=== PATIENT | female | born 1985 | race Caucasian/White ===

== ENCOUNTER 2021-12-26 06:58 | Day surgery (SDC) | payer OTHER ==
[2021-12-22 11:28] VITALS: BMI 37.8
[~2021-12-26 06:58] MED LIST: LACTATED RINGERS 1,000 ML IV SCH; LIDOCAINE 1% (10MG/ML) FOR IV START INTRADERMA PRN
[2021-12-26 07:12] VITALS: TEMP 97.5
[2021-12-26] MEDS ORDERED: LACTATED RINGERS 1,000 ML IV ONE (07:22)
[2021-12-26] MEDS ORDERED: LIDOCAINE 2% INJ 20 MG/ML (2 ML VIAL) ONE (07:32)
[2021-12-26] MEDS ORDERED: PROPOFOL 10 MG/ML 20 ML VIAL IV ONE (07:32)
--- NOTE | 2021-12-26 07:32 | P.GSHP ---
History of Present Illness H&P Date: 12/26/21 CHIEF COMPLAINT: GERD HISTORY OF PRESENT ILLNESS: The patient is a 36-year-old female who presents reports gastroesophageal reflux disease. Upper endoscopy was offered for further evaluation and management. PAST MEDICAL HISTORY: Please see list. PAST SURGICAL HISTORY: Please see list. MEDICATIONS: Please see list. ALLERGIES: Please see list. SOCIAL HISTORY: No illicit drug use FAMILY HISTORY: No reports of Crohn disease or ulcerative colitis. REVIEW OF ORGAN SYSTEMS: CONSTITUTIONAL: No reports of fevers or chills. GI: Denies any blood in stools or constipation. PHYSICAL EXAM: VITAL SIGNS: Stable GENERAL: Well-developed and pleasant in no acute distress. HEENT: No scleral icterus. Extraocular movements grossly intact. Moist buccal mucosa. NECK: Supple without lymphadenopathy. CHEST: Unlabored respirations. Equal bilateral excursions. CARDIOVASCULAR: Regular rate and rhythm. Distal 2+ pulses. ABDOMEN: Soft, nondistended. MUSCULOSKELETAL: No clubbing, cyanosis, or edema. ASSESSMENT: 1. Gastroesophageal reflux disease PLAN: 1. Recommend proceeding with an upper endoscopy Past Medical History Past Medical History: Deep Vein Thrombosis (DVT), Sleep Apnea/CPAP/BIPAP Additional Past Medical History / Comment(s): scoliosis, narrow disc in back, uterine fibroids, adenomyosis, USES C PAP MACHINE. DVT BEHIND LEFT KNEE DURING History of Any Multi-Drug Resistant Organisms: None Reported Past Surgical History: Orthopedic Surgery, Tubal Ligation Additional Past Surgical History / Comment(s): left ankle surgery x 2, pyloric stenosis surgery as an infant, Past Anesthesia/Blood Transfusion Reactions: No Reported Reaction Smoking Status: Former smoker - Past Family History Mother Family Medical History: No Reported History Medications and Allergies Home Medications Medication Instructions Recorded Confirmed Type Methylphenidate HCl 36 mg PO DAILY 11/16/21 12/22/21 History [Methylphenidate HCl ER] Ergocalciferol [Vitamin D2 (1250 50,000 unit PO GUTIERREZ 11/24/21 12/22/21 History Mcg = 37686 Iu)] Allergies Allergy/AdvReac Type Severity Reaction Status Date / Time No Known Allergies Allergy Verified 12/22/21 11:19 Surgical - Exam Vital Signs Temp Pulse Resp BP Pulse Ox 97.5 F L 67 18 130/92 98 12/26/21 07:11 12/26/21 07:11 12/26/21 07:11 12/26/21 07:11 12/26/21 07:11
[2021-12-26 08:03] VITALS: BP 122/85; PULSE 71; RESP 16
--- NOTE | 2021-12-26 08:03 | P.PCN ---
Date of Procedure: 12/26/21 Description of Procedure: PREOPERATIVE DIAGNOSIS: Gastroesophageal reflux disease. Morbid obesity. POSTOPERATIVE DIAGNOSIS: Gastroesophageal reflux disease. Morbid obesity. Gastritis. OPERATION: Esophagogastroduodenoscopy with biopsies along antrum, duodenum SURGEON: Nati Chu MD ANESTHESIA: MAC. INDICATIONS: The patient is a 36-year-old female who presents with reflux disease. Benefits and risks of the procedure were described. Informed consent was obtained. DESCRIPTION: The patient was brought into the endoscopy suite and laid in the left lateral decubitus position. An Olympus gastroscope was passed along the posterior oropharynx down to the distal esophagus where the squamocolumnar junction was encountered at 40 cm from the incisors. The stomach was entered and no bile reflux was found. Additional findings are listed below. Biopsies with cold forceps were obtained of the antrum. The first through third portion of the duodenum was examined. Retroflexion of the scope confirmed Hill grade 2 lower esophageal valve. The squamocolumnar junction demonstrated LA grade B erosive esophagitis. The stomach was desufflated. The patient tolerated the procedure well. FINDINGS: Squamocolumnar junction 38 cm from the incisors. Diaphragmatic hiatus at 38 cm. Hill grade 2 lower esophageal valve. LA grade B erosive esophagitis. Cold biopsies obtained of duodenum for celiac disease Chronic gastritis RECOMMENDATIONS: Upper endoscopy as needed. Plan - Discharge Summary Discharge Rx Participant: No New Discharge Prescriptions: Continue Methylphenidate HCl [Methylphenidate HCl ER] 36 mg PO DAILY Ergocalciferol [Vitamin D2 (1250 Mcg = 32900 Iu)] 50,000 unit PO GUTIERREZ Discharge Medication List Methylphenidate HCl [Methylphenidate HCl ER] 36 mg PO DAILY 11/16/21 [History] Ergocalciferol [Vitamin D2 (1250 Mcg = 84574 Iu)] 50,000 unit PO GUTIERREZ 11/24/21 [History] [facility]Ref[facility] [place] [facility] [place] [facility] Patient Instructions/Handouts: *[facility] - (Anesthesia) Endoscopy Discharge Instructions, Upper Endoscopy (DC) Discharge Disposition: HOME SELF-CARE
== END 2021-12-26 08:42 | disposition home or self-care (01) ==
LOC: ORWHC2ENDO 06:58
PROVIDERS: ATTEND Surgery Plastic and Reconstructive Surgery
DX: K21.00 Gastro-esophageal reflux disease with esophagitis, without bleeding (principal); K29.50 Unspecified chronic gastritis without bleeding; K44.9 Diaphragmatic hernia without obstruction or gangrene; E66.01 Morbid (severe) obesity due to excess calories; Z68.37 Body mass index [BMI] 37.0-37.9, adult; Z79.899 Other long term (current) drug therapy; Z87.891 Personal history of nicotine dependence; Z98.51 Tubal ligation status
CPT/HCPCS: 81025; 88305; 43239; J2704; J2001

== ENCOUNTER → 2022-01-18 | Outpatient (CLI) | payer OTHER ==
[2022-01-18 15:31] VITALS: BP 141/106; PULSE 89; TEMP 98.1; BMI 38.6
--- NOTE | 2022-01-18 15:53 | P.BASOAP ---
Subjective Progress Note Date: 01/18/22 Recommend continued food diary journal. EGD reviewed. Labs pending for review. Needs psych. Has hypertensive heart disease with abnormal EKG. Recommend new diagnosis. 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 Zinc and vitamin D supplement. Objective - Vital Signs Vital signs: Vital Signs Temp 98.1 F 01/18/22 15:24 Pulse 89 01/18/22 15:24 Resp BP 141/106 01/18/22 15:24 Pulse Ox FiO2 Intake & Output 01/17/22 01/18/22 01/18/22 18:59 06:59 18:59 Weight 105.233 kg Assessment/Plan Plan: Date: 01/18/22 Initial Weight: 102.965 kg Initial BMI: 37.8 Current Weight: 105.233 kg Current BMI: 38.6 Type of Surgery: Total Volume in Band: Previous Volume: Volume Removed: Volume Added: Band Size:
== END ==
LOC: BARWHC3 14:47
PROVIDERS: ATTEND Surgery Plastic and Reconstructive Surgery
DX: E66.01 Morbid (severe) obesity due to excess calories (principal); I11.9 Hypertensive heart disease without heart failure; Z68.38 Body mass index [BMI] 38.0-38.9, adult
CPT/HCPCS: 93005; G0463; 99211

== ENCOUNTER → 2022-01-30 | Outpatient (CLI) | payer OTHER ==
[2022-01-30 12:54] VITALS: BMI 38.2
== END ==
LOC: BARWHC3 08:59
PROVIDERS: ATTEND Surgery Plastic and Reconstructive Surgery
DX: E66.01 Morbid (severe) obesity due to excess calories (principal); Z71.3 Dietary counseling and surveillance; Z68.38 Body mass index [BMI] 38.0-38.9, adult
CPT/HCPCS: 97804

== ENCOUNTER 2022-08-11 12:23 | Inpatient (IN) | payer OTHER ==
--- NOTE | 2022-08-04 14:53 | P.PN ---
Progress Note - Text Progress Note Date: 08/04/22 Patient educated on pre-surgical diet and updated day of surgery
[2022-08-08 11:51] VITALS: BMI 36.8
--- NOTE | 2022-08-11 12:04 | P.GSHP ---
History of Present Illness H&P Date: 08/11/22 CHIEF COMPLAINY: Morbid obesity HISTORY OF PRESENT ILLNESS: Michell Shell is a 36-year-old female who comes with lifelong morbid obesity. She has tried eating clean, paleo, weight watchers, keto diets. She has been on Adipex for weight loss. Her most weight loss is 20 to 30 pounds. She has lactose and dairy allergy intolerance. Her highest weight is 231 pounds. She has sleep apnea. She has lower back pain and scoliosis. She has right hip pain. She denies knee pain. She has left ankle pain. She has foot pain with long standing or walking. She reports hypertension. She has history of DVT during . She has completed bariatric risk assessment. At height of 5 feet 5 inches, her ideal body weight is 149 pounds. Her highest weight is 231 pounds, body mass index 38.4. Her lowest weight is 155 pounds. She comes in 227 pounds. Her body mass index is 37.8. She is 78 pounds overweight. PAST MEDICAL HISTORY: 1. Morbid obesity due to excess calories 2. Body mass index 38.5, highest 3. Depressive disorder 4. Generalized anxiety disorder 5. Adenomyosis 6. Uterine fibroids 7. Spinal stenosis 8. Scoliosis 9. Obstructive sleep apnea 10. Osteoarthritis of the right hip. 11. Osteoarthritis of the left ankle 12. Hypertension. 13. Deep venous thrombosis during PAST SURGICAL HISTORY: 1. Pyloric stenosis repair as a infant 2. Left ankle surgery 3. Tubal ligation HOME MEDICATIONS: Home Medications Medication Instructions Recorded Confirmed Methylphenidate HCl 36 mg PO DAILY 11/16/21 01/18/22 [Methylphenidate HCl ER] Ergocalciferol [Vitamin D2 (1250 50,000 unit PO GUTIERREZ 11/24/21 01/18/22 Mcg = 16246 Iu)] Biotin 5 mg PO DAILY 01/18/22 01/18/22 Calcium Carbonate [Calcium] 600 mg PO DAILY 01/18/22 01/18/22 Magnesium 1 tab PO DAILY 01/18/22 01/18/22 Zinc 1 tab PO DAILY 01/18/22 01/18/22 ALLERGIES: Allergies Allergy/AdvReac Type Severity Reaction Status Date / Time No Known Allergies Allergy Verified 12/22/21 11:19 SOCIAL HISTORY: She has past tobacco use. FAMILY HISTORY: No family history of ulcerative colitis disease or Crohn's disease. Family history of morbid obesity. No lupus in the family. No reports of stomach or esophageal cancer. Her mother has myathenia gravis. REVIEW OF ORGAN SYSTEMS: CONSTITUTIONAL:At height of 5 feet 5 inches, her ideal body weight is 149 pounds. Her highest weight is 231 pounds, body mass index 38.4. Her lowest weight is 155 pounds. She comes in 227 pounds. Her body mass index is 37.8. She is 78 pounds overweight. HEENT: Denies any active troubles with vision or hearing. ENDOCRINE: Denies diabetes. Denies hypothyroidism. CARDIOVASCULAR: Denies past reports of palpitations or heart attacks or chest pain. Has hypertension. RESPIRATORY: Has daytime somnolence and snores. Has sleep apnea. GASTROINTESTINAL: Denies any bright red blood per rectum. No diarrhea. No constipation. Has gastroesophageal reflux disease. She has lactose and dairy allergy intolerance. GENITOURINARY: Denies bladder urgency. No recent blood in urine. MUSCULOSKELETAL: Has lower back pain and joint pain. Has scoliosis. NEURO: Denies migraines. No seizure disorders. PSYCH: Has anxiety. Has depression RHEUMATOLOGIC: No lupus. No rheumatoid arthritis. HEMATOLOGIC: Denies any abnormal bleeding or bruising. Past history of DVT during . SKIN: No rash. No skin cancer. PHYSICAL EXAM: VITAL SIGNS: Height 5 foot 5 inches, weight 227 pounds. BMI 37.8 GENERAL: Well-developed in no acute distress. HEENT: No scleral icterus. Extraocular movements grossly intact. Hears conversational speech. No nasal drainage. NECK: Supple without lymphadenopathy. CHEST: Nonlabored respirations with equal bilateral excursions. CARDIOVASCULAR: Regular rate and regular rhythm. Distal 2+ pulses. ABDOMEN: Obese, soft, nontender, nondistended. MUSCULOSKELETAL: No clubbing, cyanosis. NEURO: No focal or lateralizing signs. Cranial nerves 2 through 12 grossly within normal limits. PSYCH: Appropriate affect. Alert and oriented to person, place and time. SKIN: Good skin turgor. Well perfused. ASSESSMENT: 1. Morbid obesity due to excess calories 2. Body mass index 38.5 to 37.8 3. Depressive disorder 4. Generalized anxiety disorder 5. Adenomyosis 6. Uterine fibroids 7. Spinal stenosis 8. Scoliosis 9. Obstructive sleep apnea 10. Osteoarthritis of the right hip. 11. Osteoarthritis of the left ankle 12. Hypertension. 13. Deep venous thrombosis during 14. Family history of morbid obesity PLAN: 1. Bariatric options between a sleeve, band and a David-en-Y gastric bypass were reviewed in detail. The patient elected for a sleeve gastrectomy. Robotic assisted approach described. 2. The [place] [facility] Data was also reviewed with benefits and risks as described. 3. An 8 page second-generation bariatric consent form was reviewed in detail including potential of bleeding, infection, leaks, adequate weight loss, nutritional deficiencies which the patient demonstrated understanding of the risks. 4. A 2 week high-protein low caloric 800 kcal diet described to address hepatomegaly. 5. Preoperative labs including complete metabolic panel and CBC with type and screen recommended. 6. DVT prophylaxis per [place] [facility]ariat[facility] surgery collaborative. 7. Antibiotic prophylaxis. 8. Inpatient hospitalization anticipated for more than 2 nights. 9. All questions and concerns were addressed with the patient. 10. The patient is at elevated risk for perioperative complications with sleep apnea and hypertensive heart disease. 11. Overall, patient has expressed understanding of bariatric care including postoperative diet and commitment of lifestyle. Patient should benefit from surgical intervention for correction of morbid obesity. Past Medical History Past Medical History: Deep Vein Thrombosis (DVT), Hypertension, Sleep Apnea/CPAP/BIPAP Additional Past Medical History / Comment(s): scoliosis, narrow disc in back, ut erine fibroids, adenomyosis, USES C PAP MACHINE-NOT CURRENTLY USING, DVT BEHIND LEFT KNEE DURING History of Any Multi-Drug Resistant Organisms: None Reported Past Surgical History: Orthopedic Surgery, Tubal Ligation Additional Past Surgical History / Comment(s): left ankle surgery x 2, pyloric stenosis surgery as an infant, Past Anesthesia/Blood Transfusion Reactions: No Reported Reaction Smoking Status: Former smoker - Past Family History Mother Family Medical History: No Reported History Medications and Allergies Home Medications Medication Instructions Recorded Confirmed Type Ergocalciferol [Vitamin D2 (1250 50,000 unit PO GUTIERREZ 11/24/21 08/08/22 History Mcg = 25401 Iu)] Calcium Carbonate [Calcium] 600 mg PO DAILY 01/18/22 08/08/22 History Losartan [Cozaar] 50 mg PO DAILY 07/26/22 08/08/22 History Metoprolol Succinate (ER) [Toprol 50 mg PO DAILY 07/26/22 08/08/22 History Xl] Norethindrone [Ortho Micronor] 0.35 mg PO DAILY 07/26/22 08/08/22 History Nortriptyline HCl [Pamelor] 25 mg PO HS 07/26/22 08/08/22 History tiZANidine [Zanaflex] 4 mg PO Q8HR PRN 07/26/22 08/08/22 History Allergies Allergy/AdvReac Type Severity Reaction Status Date / Time No Known Allergies Allergy Verified 08/08/22 11:37
[~2022-08-11 12:23] MED LIST changes: +CHLORHEXIDINE GLUCONATE 15 ML CUP MUCOUS MEM PRN; +DEXAMETHASONE SOD PHOSPHATE 4 MG/ML 1 ML VIAL IV ONE; +ENOXAPARIN 40 MG/0.4 ML SYRINGE SQ PRN; +HYDROmorphone 0.5 MG/0.5 ML SYRINGE IVP PRN; -LACTATED RINGERS 1,000 ML IV SCH; +MIDAZOLAM 2 MG/2 ML VIAL IV PRN; +PANTOPRAZOLE 40 MG/10 ML VIAL IVP PRN
[2022-08-11] MEDS: ONDANSETRON 4 MG/2 ML VIAL IVP ONE ×2 (13:08→15:53)
[2022-08-11] MEDS: LACTATED RINGERS 1,000 ML IV SCH (13:14)
[2022-08-11 13:16] LABS: Basophils % (A) 0 %; Eosinophils % (A) 0 %; HCT 38.5 % (34.0-46.0); HGB 13.5 gm/dL (11.4-16.0); Lymphocytes # (A) 2.7 k/uL (1.0-4.8); Lymphocytes % (A) 27 %; MCH 31.6 pg (25.0-35.0); MCV 90.3 fL (80.0-100.0); Mean Platelet Volume 8.2; Monocytes # (A) 0.4 k/uL (0-1.0); Monocytes % (A) 4 %; Neutrophils # (A) 6.9 k/uL (1.3-7.7); Neutrophils % (A) 67 %; Platelet Count 309 k/uL (150-450); RBC 4.26 m/uL (3.80-5.40); RDW 12.2 % (11.5-15.5); WBC 10.3 k/uL (3.8-10.6)
[2022-08-11] MEDS ORDERED: SCOPOLAMINE 1 MG/72 HR PATCH TRANSDERM ONE (13:26)
[2022-08-11 13:28] LABS: ALT 23 U/L (4-34); AST 21 U/L (14-36); African American GFR (CKD) >90 (>60 ml/min/1.73 sqM); Albumin 4.5 g/dL (3.5-5.0); Alkaline Phosphatase 101 U/L (38-126); Anion Gap 8 mmol/L; Blood Urea Nitrogen 12 mg/dL (7-17); Calcium 9.4 mg/dL (8.4-10.2); Carbon Dioxide 26 mmol/L (22-30); Chloride 106 mmol/L (98-107); Glucose 79 mg/dL (74-99); Non-African American GFR(CKD) >90 (>60 ml/min/1.73 sqM); Potassium 4.6 mmol/L (3.5-5.1); Sodium 140 mmol/L (137-145); Total Bilirubin 0.5 mg/dL (0.2-1.3); Total Protein 7.5 g/dL (6.3-8.2)
[2022-08-11] MEDS ORDERED: PROPOFOL 10 MG/ML 20 ML VIAL IV ONE (13:43)
[2022-08-11] MEDS ORDERED: LIDOCAINE 2% INJ 20 MG/ML (2 ML VIAL) ONE (13:43)
[2022-08-11] MEDS ORDERED: ROCURONIUM 10 MG/ML (5 ML VIAL) IV ONE (13:43)
[2022-08-11] MEDS ORDERED: MIDAZOLAM 2 MG/2 ML VIAL ONE (13:43)
[2022-08-11] MEDS ORDERED: NEOSTIGMINE 1 MG/ML 10 ML VIAL ONE (13:43)
[2022-08-11] MEDS ORDERED: GLYCOPYRROLATE 0.2 MG/ML 2 ML VIAL ONE (13:43)
[2022-08-11] MEDS ORDERED: fentaNYL (PF) 50 MCG/ML 2 ML AMP ONE (13:43)
[2022-08-11] MEDS ORDERED: BUPIVACAIN-EPI 0.25%-1:200,000 30 ML VIAL SQ ONE ×2 (14:04→14:22)
[2022-08-11] MEDS ORDERED: LACTATED RINGERS 1,000 ML IV ONE (14:37)
[2022-08-11] MEDS ORDERED: NALOXONE 0.4 MG/ML 1 ML VIAL IV PRN (15:47)
[2022-08-11] MEDS ORDERED: HYDROmorphone 1 MG/ML 1 ML SYRINGE IVP PRN (16:17)
[2022-08-11] MEDS ORDERED: diphenhydrAMINE 50 MG/ML 1 ML VIAL IVP PRN (16:17)
[2022-08-11] MEDS ORDERED: HYDROmorphone 0.5 MG/0.5 ML SYRINGE IVP ONE (16:24)
[2022-08-11] MEDS ORDERED: DEXAMETHASONE SOD PHOSPHATE 10 MG/ML 1 ML VIAL IVP ONE (16:39)
[2022-08-11] MEDS: ACETAMINOPHEN IV (For NPO) 1,000 MG in EMPTY BAG 1 BAG IVPB SCH (17:22)
[2022-08-11] MEDS: ONDANSETRON 4 MG/2 ML VIAL IVP SCH (18:20)
[2022-08-11] MEDS: KETOROLAC 15 MG/ML 1 ML VIAL IVP SCH (18:23)
[2022-08-11] MEDS: SIMETHICONE 40 MG/0.6 ML DROPS 2,000 MG/30 ML BOTTLE PO SCH (18:25)
[2022-08-11] MEDS: HYOSCYAMINE ORAL DROPS 1.875 MG/15 ML BOTTLE PO SCH (18:26)
[2022-08-11] MEDS: ALBUTEROL NEBULIZED 2.5 MG/3 ML INHALATION SCH ×2 (20:23→20:48)
[2022-08-11] MEDS ORDERED: ONDANSETRON 4 MG/2 ML VIAL IVP STA (20:24)
[2022-08-11] MEDS: PANTOPRAZOLE 40 MG/10 ML VIAL IV SCH (20:33)
[2022-08-11] MEDS: 0.9% NACL WITH KCL 20 MEQ/L 1,000 ML IV SCH (20:34)
[2022-08-12] MEDS: KETOROLAC 15 MG/ML 1 ML VIAL IVP SCH ×5 (00:21→23:36)
[2022-08-12] MEDS: ACETAMINOPHEN IV (For NPO) 1,000 MG in EMPTY BAG 1 BAG IVPB SCH ×3 (00:21→13:18)
[2022-08-12] MEDS: ONDANSETRON 4 MG/2 ML VIAL IVP SCH ×5 (00:21→23:36)
[2022-08-12] MEDS: HYOSCYAMINE ORAL DROPS 1.875 MG/15 ML BOTTLE PO SCH ×5 (00:22→23:37)
[2022-08-12] MEDS: SIMETHICONE 40 MG/0.6 ML DROPS 2,000 MG/30 ML BOTTLE PO SCH ×5 (00:22→23:37)
[2022-08-12] MEDS: 0.9% NACL WITH KCL 20 MEQ/L 1,000 ML IV SCH ×4 (00:31→17:43)
[2022-08-12] MEDS: LACTATED RINGERS 1,000 ML IV SCH (06:13)
[2022-08-12] MEDS: ALBUTEROL NEBULIZED 2.5 MG/3 ML INHALATION SCH ×4 (08:05→21:21)
--- NOTE | 2022-08-12 08:13 | P.OP ---
Date of Procedure: 08/11/22 Description of Procedure: SURGEON: OLIVIA BARRY MD PREOPERATIVE DIAGNOSES: 1. Morbid obesity due to excess calories POSTOPERATIVE DIAGNOSES: 1. Morbid obesity due to excess calories OPERATION: 1. Robotic assisted daVinci Xi laparoscopic sleeve gastrectomy with 40-Polish bougie, multiport. 2. Intraoperative esophagogastroduodenoscopy. ANESTHESIA: Gen. local anesthetic ESTIMATED BLOOD LOSS: 5 mL SPECIMENS REMOVED: Sleeve gastrectomy COMPLICATIONS: None. FINDINGS: 1. Negative intraoperative esophagogastrojejunoscopy leak test. 2. No hepatomegaly and no large hiatus hernia. 3. Total of 5 staplers used including 1 - 60 mm green robot harika and 4 - 60 mm blue robot loads used to create the gastric sleeve. 4. Sleeve gastrectomy, 24 x 6 cm INDICATIONS: The patient is a 36-year-old female who comes with lifelong morbid obesity. She is looking into the sleeve gastrectomy. She has comorbidities including obstructive sleep apnea, insulin-dependent diabetes type 2, osteoarthritis of the knees and back At height of 5 feet 5 inches, her ideal body weight is 149 pounds. She comes in 316 pounds from 339 pounds, 1 month ago. She lost 23 pounds in 1 month. Her body mass index is down from 57.7 to 51.2. She is 167 pounds overweight. All surgical options for morbid obesity had been described using the [place] bariat[facility] surgery collaborative comorbidity resolution including complication risk score. A second-generation bariatric consent form was described in detail including the possibility of protein malnutrition, leaks, gastric stricture, venous thrombosis, gastroesophageal reflux disease, need for further surgery for which she demonstrated understanding. Benefits and risks of the procedure were described at length. Informed consent was obtained. DESCRIPTION: The patient was brought into the operating room theater. Preoperatively she had received Lovenox subcutaneously for DVT prophylaxis. Additionally she had Peridex oral solution as an oral decontaminant. After general induction, the abdomen was prepped and draped in standard sterile fashion. An Ioban draping was placed along the abdomen. A robotic da Lawrence Xi system was prepped and primed. At 15 cm from the xiphoid, proposed port sites were marked with indelible marker along the anterior axillary line bilaterally, mid axillary line bilaterally with each ports were marked 10 to 15 cm from each other. The robotic stapler port was marked for the right midclavicular line. A 5 mm 0 degrees laparoscopic trocar entry was performed along the left upper quadrant. The abdomen was insufflated to 15 mmHg pressure was tolerated well. Diagnostic laparoscopy demonstrated no injury to bowel, viscera, or mesentery. No evidence of large hiatus hernia was identified. The liver edge was sharp consistent with 2 week low-carb high-protein diet. A 8 mm port was placed along the left upper abdominal wall after exchanging the 5 mm port. A separate 8 mm port was placed along the left lateral abdominal wall. Please note that the ports were placed at least 20 cm away from the target anatomy. Care was taken to check each robotic arms were safely away from collision with the bed or the patient. At the epigastrium, a medium sized Cash liver retractor was placed under direct visualization with the [employer] Adjustment Counselor placed under the right shoulder of the patient. Next, 12-mm robot stapler port was placed along the right upper quadrant. The camera 8-mm port was maintained along the epigastrium. The patient was repositioned in reverse Trendelenburg position at 21-degrees after lowering the bed. The robot was docked along the left side of the patient. Using a grasper for arm 4, a vessel sealer for arm 3, including grasper for arm 1, the robotic system was docked and primed as described. Instruments were interchanged by the events and promotions assistant for stapler loads. The camera was placed at 30- degrees down. I had sat at the console. The pylorus was identified and 6 cm proximally along the greater curvature of the stomach, the short gastrics were mobilized upwards to the angle of His using a vessel sealer. Hemostasis was excellent during this portion of the procedure. Next, the upper pole of the stomach was adherent to the left megan, which was gently dissected free using atraumatic grasper. I went to the head of the bed and placed 40-Polish blunt bougie into the stomach. The bougie was readjusted by the nurse salesperson china and glassware. Robotic stapler black load 60 mm 2 followed by green 60 mm x 5 loads were used to create the sleeve. Initial firing was across the antrum of the stomach towards the angle of His. The staple line was linear without corkscrewing. The space from the angularis incisura of the sleeve was approximately 4 cm. I then went to the head of the bed to perform the intraoperative esophagogastroduodenoscopy leak test. The bougie was withdrawn. The upper pole of the stomach was bathed using normal saline solution. The scope was withdrawn with careful inspection along the staple line for which no leaks were found along the entire length. Additionally,the sleeve was completely hemostatic without any encroachment along the angularis incisura. Its topology was a soft "J". No stricture was encountered upon placement of the scope. The GI tract was desufflated. The patient tolerated this portion of the procedure well. The scope was completely withdrawn. The robot was undocked. I then rescrubbed into case, whereby the irrigation fluid was aspirated from the abdominal cavity. Tisseel fibrin sealant was placed along the entire staple length. Once dried the Cash liver retractor was removed. Attention was now brought to removal of the specimen. The distal end of the sleeve gastrectomy specimen was brought out through the 12 mm port at the left upper quadrant. The specimen was gently removed en total. No contamination had o ccurred during this process. All instruments and pneumoperitoneum including irrigation fluid was removed from the abdominal cavity. The 12 mm port site was closed using 0-Vicryl and Umair Lilly and irrigated with diluted hydrogen peroxide. The final incisions were closed using subcuticular interrupted suture of 4-0 Monocryl. Exofin was applied to the skin once the skin had been cleansed. OptiFoam dressing was placed along the stomach extraction site. The sleeve specimen was measured and checked also for leaks which none were found. At the end of the procedure, needle, sponge, and instrument count was verified correct by the rn surgical. The patient was taken to the postanesthesia care unit in stable condition. She had tolerated the procedure well. Intraoperative films and findings were reviewed with the patient's family.
[2022-08-12] MEDS: ENOXAPARIN 40 MG/0.4 ML SYRINGE SQ SCH (08:36)
[2022-08-12] MEDS: PANTOPRAZOLE 40 MG/10 ML VIAL IV SCH ×2 (08:36→21:19)
[2022-08-12] MEDS: LOSARTAN 50 MG TAB PO SCH (08:37)
[2022-08-12] MEDS: METOPROLOL SUCCINATE (ER) 50 MG TAB.ER.24H PO SCH (08:37)
[2022-08-12] MEDS ORDERED: DEXAMETHASONE SOD PHOSPHATE 10 MG/ML 1 ML VIAL IVP STA (09:18)
[2022-08-12 09:20] LABS: Basophils # (A) 0 X 10*3/uL (0.00-0.10); Basophils % (A) 0 %; Eosinophils # (A) 0 X 10*3/uL (0.04-0.35); Eosinophils % (A) 0 %; HCT 34.9 % (37.2-46.3); HGB 11.6 g/dL (12.0-15.0); Immature Grans, Automated 0.7 %; Lymphocytes # (A) 0.95 X 10*3/uL (0.90-5.00); Lymphocytes % (A) 13.9 %; MCH 30.4 pg (27.0-32.0); MCHC 33.2 g/dL (32.0-37.0); MCV 91.4 fL (80.0-97.0); Mean Platelet Volume 10.9 fL (9.5-12.2); Monocytes # (A) 0.11 X 10*3/uL (0.20-1.00); Monocytes % (A) 1.6 %; NRBC Per 100 WBC 0 /100 WBCS (0.0-0.0); Neutrophils # (A) 5.72 X 10*3/uL (1.80-7.70); Neutrophils % (A) 83.8 %; Platelet Count 265 X 10*3/uL (140-440); RBC 3.82 X 10*6/uL (4.10-5.20); RDW 11.9 % (11.5-14.5); WBC 6.83 X 10*3/uL (4.50-10.00)
--- NOTE | 2022-08-12 09:50 | FL ---
EXAMINATION TYPE: FL UGI DATE OF EXAM: 08/12/2022 COMPARISON: None HISTORY: Post gastric sleeve TECHNIQUE: A single contrast UGI study is performed. FINDINGS: Contrast passes from the distal esophagus through the gastric sleeve with moderate hesitanc y. No extravasation of contrast is evident. Delayed images were obtained in fluoroscopic observation was performed. Filling of the gastric sleeve is not well visualized during this examination. However, contrast is evident within loops of small bowel. No suspicious area for extravasation is evident. No free air is noted during this examination. Overhead radiographs were obtained which are unremarkable. IMPRESSIONS: 1. Normal post gastric sleeve without extravasation. 2. Gastric sleeve is not well visualized on the images but contrast is evident within small bowel loo ps. Consider close follow-up.
[2022-08-12 09:56] LABS: Anion Gap 8.8 mmol/L (10.00-18.00); Blood Urea Nitrogen 9.7 mg/dL (9.0-27.0); Calcium 8.7 mg/dL (8.7-10.3); Carbon Dioxide 22.2 mmol/L (20.0-27.5); Magnesium 1.9 mg/dL (1.5-2.4); Non-African American GFR(CKD) 115.6 (60.0-200.0); Phosphorus 3.2 mg/dL (2.4-5.1); Potassium 4.6 mmol/L (3.5-5.5)
--- NOTE | 2022-08-12 11:33 | P.PN ---
Subjective Progress Note Date: 08/12/22 Principal diagnosis: Morbid obesity 36-year-old female complaining of nausea and some upper discomfort after sleeve gastrectomy yesterday. Upper GI shows no leak or obstruction. Some hesitancy. She has not been able to drink what she says. Objective - Vital Signs Vital signs: Vital Signs Temp 97.5 F L 08/12/22 07:24 Pulse 64 08/12/22 07:24 Resp 19 08/12/22 07:24 BP 111/69 08/12/22 07:24 Pulse Ox 96 08/12/22 08:03 FiO2 21 08/12/22 08:03 Intake & Output 08/11/22 08/12/22 08/12/22 18:59 06:59 18:59 Intake Total 3050 1430 Output Total 5 2000 Balance 3045 -570 Weight 100.5 kg 100.5 kg Intake: IV 3050 Intake, IV Titration 950 Amount 0.9% NaCl with KCl 20 Meq 900 /l 1,000 ml @ 150 mls/hr IV .[id number] JUSTIN Rx#: [id number] ceFAZolin 2 gm In Sodium 50 Chloride 0.9% 50 ml @ 100 mls/hr IVPB Q8H JUSTIN Rx#: [id number] Oral 0 480 Output: Urine 2000 Estimated Blood Loss 5 Other: Voiding Method Toilet # Voids 1 1 - Exam Abdomen: Soft, nondistended, mild tenderness, incisions clean and dry - Labs CBC & Chem 7: 08/12/22 04:17 08/12/22 04:17 Labs: Abnormal Lab Results - Last 24 Hours (Table) 08/12/22 08/12/22 Range/Units 04:17 04:17 RBC 3.82 L (4.10-5.20) X 10*6/uL Hgb 11.6 L (12.0-15.0) g/dL Hct 34.9 L (37.2-46.3) % Immature Gran # 0.05 H (0.00-0.04) X 10*3/uL Monocytes # 0.11 L (0.20-1.00) X 10*3/uL Eosinophils # 0 L (0.04-0.35) X 10*3/uL Anion Gap 8.80 L (10.00-18.00) mmol/L Assessment and Plan (1) Obesity (BMI 30-39.9) Narrative/Plan: 36-year-old female doing fairly well after sleeve gastrectomy yesterday. Monitor liquid intake. Possible discharge later today or tomorrow based on liquid intake and nausea. Current Visit: Yes Status: Acute Code(s): E66.9 - OBESITY, UNSPECIFIED SNOMED Code(s): 683030475
[2022-08-12] MEDS: DEXAMETHASONE SOD PHOSPHATE 4 MG/ML 1 ML VIAL IVP SCH ×3 (13:16→23:36)
[2022-08-13] MEDS: 0.9% NACL WITH KCL 20 MEQ/L 1,000 ML IV SCH ×2 (04:54→09:00)
[2022-08-13] MEDS: KETOROLAC 15 MG/ML 1 ML VIAL IVP SCH ×2 (05:47→12:04)
[2022-08-13] MEDS: DEXAMETHASONE SOD PHOSPHATE 4 MG/ML 1 ML VIAL IVP SCH ×2 (05:47→12:03)
[2022-08-13] MEDS: ONDANSETRON 4 MG/2 ML VIAL IVP SCH ×2 (05:48→12:03)
[2022-08-13] MEDS: SIMETHICONE 40 MG/0.6 ML DROPS 2,000 MG/30 ML BOTTLE PO SCH ×2 (05:48→12:04)
[2022-08-13] MEDS: HYOSCYAMINE ORAL DROPS 1.875 MG/15 ML BOTTLE PO SCH ×2 (05:48→12:04)
[2022-08-13] MEDS: ALBUTEROL NEBULIZED 2.5 MG/3 ML INHALATION SCH ×2 (07:49→11:25)
[2022-08-13] MEDS ORDERED: bisacodyL 5 MG TABLET.DR PO PRN (08:00)
[2022-08-13] MEDS: PANTOPRAZOLE 40 MG/10 ML VIAL IV SCH (09:00)
[2022-08-13] MEDS: LOSARTAN 50 MG TAB PO SCH (09:01)
[2022-08-13] MEDS: METOPROLOL SUCCINATE (ER) 50 MG TAB.ER.24H PO SCH (09:01)
[2022-08-13] MEDS: ENOXAPARIN 40 MG/0.4 ML SYRINGE SQ SCH (09:01)
--- NOTE | 2022-08-13 10:29 | P.DS ---
Providers Date of admission: 08/11/22 12:23 Expected date of discharge: 08/13/22 Attending physician: Nati Chu Primary care physician: Physician Nonstaff - Discharge Diagnosis(es) (1) Obesity (BMI 30-39.9) 36-year-old female underwent elective sleeve gastrectomy 2 days ago. Yesterday was having nausea and was not drinking much liquids. Today she is doing much better. Only mild discomfort. No nausea currently. She has had about 10 ounces of liquids already this morning. She would like to go home. Will plan discharge. Follow-up as outpatient. Current Visit: Yes Status: Acute Plan - Discharge Summary Discharge Rx Participant: Yes New Discharge Prescriptions: New Simethicone 40 mg/0.6 ml Drops [Mylicon Drops] 40 mg PO Q6HR ml bisacodyL [Dulcolax] 5 mg PO DAILY PRN #10 tab PRN Reason: Constipation Simethicone 40 mg/0.6 ml Drops [Mylicon Drops] 40 mg PO PCHS PRN #30 ml PRN Reason: Gas Acetaminophen Tab [Tylenol Tab] 1,000 mg PO Q6HR PRN #30 tablet PRN Reason: Pain Ondansetron Odt [Zofran Odt] 4 mg PO Q8HR PRN #9 tab PRN Reason: Nausea Omeprazole [PriLOSEC] 40 mg PO DAILY #30 cap Continue Nortriptyline HCl [Pamelor] 25 mg PO HS Calcium Carbonate [Calcium] 600 mg PO DAILY tiZANidine [Zanaflex] 4 mg PO Q8HR PRN PRN Reason: Muscle relax Norethindrone [Ortho Micronor] 0.35 mg PO DAILY Metoprolol Succinate (ER) [Toprol XL] 50 mg PO DAILY Losartan [Cozaar] 50 mg PO DAILY Discontinued Ergocalciferol [Vitamin D2 (1250 Mcg = 94235 Iu)] 50,000 unit PO GUTIERREZ Discharge Medication List Calcium Carbonate [Calcium] 600 mg PO DAILY 01/18/22 [History] Losartan [Cozaar] 50 mg PO DAILY 07/26/22 [History] Metoprolol Succinate (ER) [Toprol XL] 50 mg PO DAILY 07/26/22 [History] Norethindrone [Ortho Micronor] 0.35 mg PO DAILY 07/26/22 [History] Nortriptyline HCl [Pamelor] 25 mg PO HS 07/26/22 [History] tiZANidine [Zanaflex] 4 mg PO Q8HR PRN 07/26/22 [History] Acetaminophen Tab [Tylenol Tab] 1,000 mg PO Q6HR PRN #30 tablet 08/12/22 [Rx] Omeprazole [PriLOSEC] 40 mg PO DAILY #30 cap 08/12/22 [Rx] Ondansetron Odt [Zofran Odt] 4 mg PO Q8HR PRN #9 tab 08/12/22 [Rx] Simethicone 40 mg/0.6 ml Drops [Mylicon Drops] 40 mg PO PCHS PRN #30 ml 08/12/22 [Rx] Simethicone 40 mg/0.6 ml Drops [Mylicon Drops] 40 mg PO Q6HR ml 08/12/22 [Rx] bisacodyL [Dulcolax] 5 mg PO DAILY PRN #10 tab 08/12/22 [Rx] [facility] [facility] (Nurse visit) Patient Instructions/Handouts: *[facility] - Managing Your Pain After Surgery Without Opioids, *[facility] - Scopalamine Patch Instructions, Abdominal Binder (DC), Nutrition after Bariatric Surgery (GEN), Laparoscopic Sleeve Gastrectomy (GEN) Activity/Diet/Wound Care/Special Instructions: Liquid diet only for 2 weeks until August 25 No lifting over 4 pounds in 4 weeks, September 11September Shower. No soaking in bath tubs 2 weeks, until August 25 Please notify your surgeon if you develop nausea and vomiting including new onset of abdominal pain. Continue to use incentive spirometry to prevent pneumonias. Please continue to ambulate at home to prevent blood clots in legs. Follow-up at the bariatric center. May shower. Dressings to be discontinued by surgeon in the office. Drink 64 oz of fluid daily. Start protein shakes on Sunday. Notify bariatric center for temp over 101.0, increased pain, drainage from incisions. No straws or carbonated beverages. Liquid diet only. Sugar content should be less than 6 g to avoid dumping syndrome. Take MOM for constipation. CRUSH, OPEN, OR CUT TABLETS LARGER THAN A SIZE OF A TIC TAC Discharge Disposition: HOME SELF-CARE
[2022-08-13 10:35] VITALS: BP 114/73; PULSE 54; RESP 18; TEMP 98
== END 2022-08-13 13:11 | disposition home or self-care (01) | DRG 403 ==
LOC: 2ORMAIN 12:23 → 4SSUR 15:53
PROVIDERS: ADMIT Surgery Plastic and Reconstructive Surgery; ATTEND Surgery Plastic and Reconstructive Surgery
PROC: 8E0W4CZ Robotic Assisted Procedure of Trunk Region, Percutaneous Endoscopic Approach (ICD-10-PCS; principal; 2022-08-11 13:35)
PROC: 0DB64Z3 Excision of Stomach, Percutaneous Endoscopic Approach, Vertical (ICD-10-PCS; principal; 2022-08-11 13:35)
PROC: 0DJ08ZZ Inspection of Upper Intestinal Tract, Via Natural or Artificial Opening Endoscopic (ICD-10-PCS; principal; 2022-08-11 13:35)
DX: E66.01 Morbid (severe) obesity due to excess calories (principal); Z68.36 Body mass index [BMI] 36.0-36.9, adult; D25.9 Leiomyoma of uterus, unspecified; E11.9 Type 2 diabetes mellitus without complications; G47.33 Obstructive sleep apnea (adult) (pediatric); M17.0 Bilateral primary osteoarthritis of knee; M19.072 Primary osteoarthritis, left ankle and foot; M16.11 Unilateral primary osteoarthritis, right hip; F32.A Depression, unspecified; F41.1 Generalized anxiety disorder; N80.03 Adenomyosis of the uterus; M47.9 Spondylosis, unspecified; M48.00 Spinal stenosis, site unspecified; M41.9 Scoliosis, unspecified; I10 Essential (primary) hypertension; M54.50 Low back pain, unspecified; Z79.3 Long term (current) use of hormonal contraceptives; Z79.899 Other long term (current) drug therapy; Z87.891 Personal history of nicotine dependence; Z86.718 Personal history of other venous thrombosis and embolism; Z71.3 Dietary counseling and surveillance; Z83.49 Family history of other endocrine, nutritional and metabolic diseases
CPT/HCPCS: 74240; 80051; 80053; 82310; 82565; 83735; 84100; 84520; 85025; 86850; 86900; 86901; 88307; 94760

== ENCOUNTER → 2022-08-15 | Outpatient (CLI) | payer OTHER ==
[~2022-08-15] MED LIST changes: -CHLORHEXIDINE GLUCONATE 15 ML CUP MUCOUS MEM PRN; -DEXAMETHASONE SOD PHOSPHATE 4 MG/ML 1 ML VIAL IV ONE; -ENOXAPARIN 40 MG/0.4 ML SYRINGE SQ PRN; -HYDROmorphone 0.5 MG/0.5 ML SYRINGE IVP PRN; -LIDOCAINE 1% (10MG/ML) FOR IV START INTRADERMA PRN; -MIDAZOLAM 2 MG/2 ML VIAL IV PRN; -PANTOPRAZOLE 40 MG/10 ML VIAL IVP PRN; +SODIUM CHLORIDE 0.9% 1,000 ML IV ONE
[2022-08-15 13:19] VITALS: BP 115/78; PULSE 69; RESP 16; TEMP 97.9
== END ==
LOC: PROCWHC3 13:07
PROVIDERS: ATTEND Surgery Plastic and Reconstructive Surgery
DX: E86.0 Dehydration (principal)
CPT/HCPCS: 96360

== ENCOUNTER → 2022-08-23 | Outpatient (CLI) | payer OTHER ==
[2022-08-23 15:11] VITALS: BP 117/82; PULSE 76; TEMP 98.1; BMI 35.6
== END ==
LOC: BARWHC3 14:00
PROVIDERS: ATTEND Surgery Plastic and Reconstructive Surgery
DX: E66.01 Morbid (severe) obesity due to excess calories (principal); Z71.3 Dietary counseling and surveillance; Z68.35 Body mass index [BMI] 35.0-35.9, adult
CPT/HCPCS: 97802; G0463; 99211

== ENCOUNTER → 2022-09-06 | Outpatient (CLI) | payer OTHER ==
[2022-09-06 15:46] VITALS: BP 109/81; PULSE 77; TEMP 98.1; BMI 33.7
--- NOTE | 2022-09-06 15:58 | P.BASOAP ---
Subjective Progress Note Date: 09/06/22 She has constipation issues of the lower abdomen. She is 2 weeks out. She is not keeping her protein intake. She reports nausea. She is eating nausea regularly. She lost 30 pounds. She has nausea of water in the morning. Recommend warm beverages for poo. REcommend david additive. Do lactulose BID. She is nauseated from yogurt. Objective - Vital Signs Vital signs: Vital Signs Temp 98.1 F 09/06/22 15:43 Pulse 77 09/06/22 15:43 Resp BP 109/81 09/06/22 15:43 Pulse Ox FiO2 Intake & Output 09/05/22 09/06/22 09/06/22 18:59 06:59 18:59 Weight 92.079 kg Assessment/Plan Plan: Date: 09/06/22 Initial Weight: 102.965 kg Initial BMI: 37.8 Current Weight: 92.079 kg Current BMI: 33.7 Type of Surgery: Total Volume in Band: Previous Volume: Volume Removed: Volume Added: Band Size:
--- NOTE | 2022-09-06 16:04 | P.PN ---
Progress Note - Text Progress Note Date: 09/06/22 To whom it may concern: Michell Shell is under my surgical care. She may return to work September 18, 2022. Regards, Nati Chu MD, FACS
== END ==
LOC: BARWHC3 15:17
PROVIDERS: ATTEND Surgery Plastic and Reconstructive Surgery
DX: E66.01 Morbid (severe) obesity due to excess calories (principal); Z68.33 Body mass index [BMI] 33.0-33.9, adult
CPT/HCPCS: 97803; G0463; 99211

== ENCOUNTER → 2022-09-13 | Outpatient (CLI) | payer OTHER ==
[2022-09-13 15:50] LABS: Partial Thromboplastin Time 24.5 sec (22.0-30.0); Prothrombin Time 10.8 sec (9.0-12.0)
[2022-09-14 01:16] LABS: HCT 36.3 % (37.2-46.3); HGB 11.8 g/dL (12.0-15.0); MCH 29.9 pg (27.0-32.0); MCHC 32.5 g/dL (32.0-37.0); MCV 92.1 fL (80.0-97.0); Mean Platelet Volume 12.9 fL (9.5-12.2); NRBC Per 100 WBC 0 /100 WBCS (0.0-0.0); Platelet Count 191 X 10*3/uL (140-440); RBC 3.94 X 10*6/uL (4.10-5.20); RDW 13.8 % (11.5-14.5); WBC 5.92 X 10*3/uL (4.50-10.00)
[2022-09-14 02:41] LABS: % Iron Saturation 20.08 (12.00-45.00); ALT 20 U/L (8-44); AST 20 U/L (13-35); African American GFR (CKD) 135.1 (60.0-200.0); Albumin/Globulin Ratio 1.74 (1.60-3.17); Alkaline Phosphatase 82 U/L (41-126); BUN/Creat Ratio 16.02 Ratio (12.00-20.00); Blood Urea Nitrogen 9.4 mg/dL (9.0-27.0); Calcium 9.6 mg/dL (8.7-10.3); Carbon Dioxide 23.4 mmol/L (20.0-27.5); Chloride 102 mmol/L (96-109); Ferritin 73.9 ng/mL (10.0-291.0); Globulin 2.3 g/dL (1.6-3.3); Glucose 82 mg/dL (70-110); Iron 55 ug/dL (50-170); Magnesium 1.8 mg/dL (1.5-2.4); Non-African American GFR(CKD) 116.6 (60.0-200.0); Phosphorus 2.7 mg/dL (2.4-5.1); Potassium 3.3 mmol/L (3.5-5.5); Sodium 143 mmol/L (135-145); Total Bilirubin <0.15 mg/dL (0.30-1.20); Total Iron Binding Capacity 274 ug/dL (228-460); Total Protein 6.3 g/dL (6.2-8.2)
[2022-09-14 04:00] LABS: Chol/HDL Ratio 4.23 Ratio; LDL Cholesterol,Calculated 82.4 mg/dL (0.0-131.0); Prealbumin 12.8 mg/dL (18.0-42.0)
[2022-09-15 11:50] LABS: Vitamin A 26 ug/dL (38-106)
== END | disposition home or self-care (01) ==
LOC: LABWHC1 14:19
PROVIDERS: ATTEND Surgery Plastic and Reconstructive Surgery
DX: E66.01 Morbid (severe) obesity due to excess calories (principal); E89.1 Postprocedural hypoinsulinemia; D50.8 Other iron deficiency anemias; K91.2 Postsurgical malabsorption, not elsewhere classified; E44.0 Moderate protein-calorie malnutrition; E44.1 Mild protein-calorie malnutrition; E45 Retarded development following protein-calorie malnutrition; E46 Unspecified protein-calorie malnutrition; E55.9 Vitamin D deficiency, unspecified; K74.1 Hepatic sclerosis; N19 Unspecified kidney failure; T56.894A Toxic effect of other metals, undetermined, initial encounter; K50.90 Crohn's disease, unspecified, without complications
CPT/HCPCS: 36415; 80053; 80061; 82306; 82525; 82607; 82728; 82746; 83036; 83540; 83550; 83735; 83970; 84100; 84134; 84255; 84425; 84443; 84590; 84630; 85027; 85610; 85730

== ENCOUNTER → 2023-03-07 | Outpatient (CLI) | payer OTHER ==
[2023-03-07 13:46] VITALS: BP 108/75; PULSE 91; TEMP 98.5; BMI 24.6
--- NOTE | 2023-03-07 14:28 | P.BASOAP ---
Subjective Progress Note Date: 03/07/23 She has pain from her skin and chronic lower back. She has panniculitis. Will prescribe Nystatin. 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 Reviewed. Has troubles with grooming. She has lower back pain. COnstpation increase fiber. Conservative management. She is looking into lower body lift. She complains of coccyx lift. Labs. Has grade 3 panniculus cyst. Nystatin prescribed. Objective - Vital Signs Vital signs: Vital Signs Temp 98.5 F 03/07/23 13:37 Pulse 91 03/07/23 13:37 Resp BP 108/75 03/07/23 13:37 Pulse Ox FiO2 Intake & Output 03/06/23 03/07/23 03/07/23 18:59 06:59 18:59 Weight 67.132 kg Assessment/Plan Plan: Date: 03/07/23 Initial Weight: 102.965 kg Initial BMI: 37.8 Current Weight: 67.132 kg Current BMI: 24.6 Type of Surgery: Total Volume in Band: Previous Volume: Volume Removed: Volume Added: Band Size:
[2023-03-07 16:27] LABS: Partial Thromboplastin Time 24.4 sec (22.0-30.0); Prothrombin Time 10.7 sec (10.0-12.5)
[2023-03-07 20:41] LABS: HGB 12.1 d/dL (12.0-15.0); MCHC 33.6 d/dL (32.0-37.0); MCV 92.3 FL (80.0-97.0); Mean Platelet Volume 11.6 FL (9.5-12.2); NRBC Per 100 WBC 0 X 10*3/uL (0.00-0.01); Platelet Count 185 X 10*3/uL (140-440); RDW 12.4 % (11.5-14.5); WBC 8.62 X 10*3/uL (4.50-10.00)
[2023-03-07 20:53] LABS: Chol/HDL Ratio 3.57 Ratio; Magnesium 2.2 mg/dL (1.5-2.4); VLDL Calculation 13.06 mg/dL (5.00-40.00)
[2023-03-07 20:54] LABS: % Iron Saturation 8.65 (12.00-45.00); ALT 23 U/L (8-44); AST 18 U/L (13-35); Albumin 4.4 d/dL (3.8-4.9); Albumin/Globulin Ratio 1.83 Ratio (1.60-3.17); Alkaline Phosphatase 79 U/L (41-126); BUN/Creat Ratio 27.71 Ratio (12.00-20.00); Blood Urea Nitrogen 19.4 mg/dL (9.0-27.0); Calcium 9.8 mg/dL (8.7-10.3); Carbon Dioxide 22.9 mmol/L (21.6-31.8); Chloride 106 mmol/L (96-109); Ferritin 24.4 ng/mL (10.0-291.0); Globulin 2.4 d/dL (1.6-3.3); Glucose 78 mg/dL (70-110); Iron 32 UG/DL (50-170); LDL Cholesterol,Calculated 88.4 mg/dL (0.0-131.0); Phosphorus 3.9 mg/dL (2.4-5.1); Potassium 4.1 mmol/L (3.5-5.5); Sodium 142 mmol/L (135-145); Total Bilirubin 0.2 mg/dL (0.3-1.2); Total Iron Binding Capacity 370 UG/DL (228-460); Total Protein 6.8 d/dL (6.2-8.2)
[2023-03-08 05:42] LABS: Prealbumin 16.2 mg/dL (18.0-42.0)
[2023-03-08 15:29] LABS: Zinc, Serum 65 ug/dL (60-130)
[2023-03-09 06:09] LABS: Vitamin A 28 ug/dL (38-106)
[2023-03-09 06:43] LABS: Vit B1(Thiamine) 40 ug/L (38-122)
== END ==
LOC: BARWHC3 13:14
PROVIDERS: ATTEND Surgery Plastic and Reconstructive Surgery
DX: E66.01 Morbid (severe) obesity due to excess calories (principal); K90.89 Other intestinal malabsorption; D50.8 Other iron deficiency anemias; E89.1 Postprocedural hypoinsulinemia; N19 Unspecified kidney failure; T56.894A Toxic effect of other metals, undetermined, initial encounter; K50.90 Crohn's disease, unspecified, without complications; K74.1 Hepatic sclerosis; Z71.3 Dietary counseling and surveillance; Z68.24 Body mass index [BMI] 24.0-24.9, adult
CPT/HCPCS: 84255; 84134; 84425; 80061; 80053; 82607; 82728; 82525; 82746; 83540; 83550; 83735; 84100; 84443; 84590; 84630; 85027; 85610; 85730; 82306; 83970; 83036; 97803; G0463; 99211

== ENCOUNTER → 2023-06-27 | Outpatient (CLI) | payer OTHER ==
[2023-06-27 14:44] VITALS: BP 120/85; PULSE 75; RESP 16; TEMP 98.2; BMI 22.6
--- NOTE | 2023-06-27 14:49 | P.BASOAP ---
Subjective Progress Note Date: 06/27/23 She lost 100 pounds in less than 1 year. 232 pounds from 136 pounds. BMI is normal. No GERD. Rare dysphagia with dried food. Protein intake 100 grams to 120 grams. She gets 60g to 80 grams. Her constipation is better after cutting back on diary. BMI 22.6. She cut diary and now doing very well. Cheese and less fluids caused her constipation. 96 oz. She is on coffee 2 cups. Her target is 130 pounds. She has 5 pounds skin. Needs labs. lost 100 pounds. She complains of tailbone pain. Objective - Vital Signs Vital signs: Vital Signs Temp 98.2 F 06/27/23 14:13 Pulse 75 06/27/23 14:13 Resp 16 06/27/23 14:13 BP 120/85 06/27/23 14:13 Pulse Ox FiO2 Intake & Output 06/26/23 06/27/23 06/27/23 18:59 06:59 18:59 Weight 61.689 kg Assessment/Plan Plan: Date: 06/27/23 Initial Weight: 102.965 kg Initial BMI: 37.8 Current Weight: 61.689 kg Current BMI: 22.6 Type of Surgery: Total Volume in Band: Previous Volume: Volume Removed: Volume Added: Band Size:
[2023-06-27 16:31] LABS: Partial Thromboplastin Time 24.8 sec (22.0-30.0); Prothrombin Time 10.9 sec (10.0-12.5)
[2023-06-28 02:38] LABS: HCT 35.9 % (37.2-46.3); HGB 11.5 g/dL (12.0-15.0); MCH 29.9 pg (27.0-32.0); MCV 93.5 FL (80.0-97.0); NRBC Per 100 WBC 0 X 10*3/uL (0.00-0.01); Platelet Count 233 X 10*3/uL (140-440); RBC 3.84 X 10*6/uL (4.10-5.20); RDW 12.9 % (11.5-14.5); WBC 6.97 X 10*3/uL (4.50-10.00)
[2023-06-28 03:14] LABS: % Iron Saturation 19.66 (12.00-45.00); ALT 26 U/L (8-44); AST 17 U/L (13-35); Albumin 4.3 g/dL (3.8-4.9); Albumin/Globulin Ratio 1.65 Ratio (1.60-3.17); Alkaline Phosphatase 63 U/L (41-126); BUN/Creat Ratio 20.67 Ratio (12.00-20.00); Blood Urea Nitrogen 12.4 mg/dL (9.0-27.0); Calcium 9.7 mg/dL (8.7-10.3); Carbon Dioxide 22.3 mmol/L (21.6-31.8); Chloride 105 mmol/L (96-109); Chol/HDL Ratio 2.93 Ratio; Ferritin 9.9 ng/mL (10.0-291.0); Globulin 2.6 g/dL (1.6-3.3); Glucose 84 mg/dL (70-110); Iron 80 UG/DL (50-170); LDL Cholesterol,Calculated 86.6 mg/dL (0.0-131.0); Magnesium 2.2 mg/dL (1.5-2.4); Phosphorus 3.7 mg/dL (2.4-5.1); Potassium 4.3 mmol/L (3.5-5.5); Sodium 141 mmol/L (135-145); Total Bilirubin 0.3 mg/dL (0.3-1.2); Total Iron Binding Capacity 407 UG/DL (228-460); Total Protein 6.9 g/dL (6.2-8.2); VLDL Calculation 10.26 mg/dL (5.00-40.00)
[2023-06-28 13:06] LABS: Zinc, Serum 69 ug/dL (60-130)
[2023-06-29 06:45] LABS: Vitamin A 38 ug/dL (38-106)
[2023-06-29 11:02] LABS: Vit B1(Thiamine) 54 ug/L (38-122)
[2023-06-30 19:03] LABS: Selenium 204 mcg/L (63-160)
[2023-07-02 08:17] LABS: Anabasine Urine <2.0 ng/mL (<2.0)
== END ==
LOC: BARWHC3 13:24
PROVIDERS: ATTEND Surgery Plastic and Reconstructive Surgery
DX: E66.01 Morbid (severe) obesity due to excess calories (principal); D50.8 Other iron deficiency anemias; D50.9 Iron deficiency anemia, unspecified; E44.0 Moderate protein-calorie malnutrition; E44.1 Mild protein-calorie malnutrition; E45 Retarded development following protein-calorie malnutrition; E55.9 Vitamin D deficiency, unspecified; K74.1 Hepatic sclerosis; N19 Unspecified kidney failure; T56.894A Toxic effect of other metals, undetermined, initial encounter; K50.90 Crohn's disease, unspecified, without complications; E46 Unspecified protein-calorie malnutrition; Z71.3 Dietary counseling and surveillance
CPT/HCPCS: 84255; 84134; 84425; 80061; 80053; 82607; 82728; 82525; 82746; 83540; 83550; 83735; 84100; 84443; 84590; 84630; 85027; 85610; 85730; 82306; 83970; 83036; 80307; 97803; G0480; G0463; 80323; 99211